=== PATIENT | female | born 1990 | race African-American/Black ===

== ENCOUNTER 2025-03-08 01:12 | Emergency (ER) | payer BC, OTHER ==
[~2025-03-08] VITALS: Ht 157.5 cm; Wt 70.0 kg
[~2025-03-08 01:12] MED LIST: FERR-43 PO
[2025-03-08 01:17] VITALS: O2SAT 100
[2025-03-08 01:23] VITALS: TEMP 36.7; O2SAT 100
[2025-03-08 01:40] LABS: PLATELET 203 x1000/uL (130-400); RED BLOOD CELL COUNT 4.18 mill/uL (4.2-5.4); RED CELL DISTRIBUTION WIDTH 15.5 % (11.6-14.6)
[2025-03-08 01:52] LABS: CREATININE 0.6 mg/dL (0.6-1.0)
[2025-03-08 01:53] LABS: UREA NITROGEN BLOOD < 5 mg/dL (9-23)
[2025-03-08 02:45] VITALS: BP 95/64; PULSE 78; RESP 16
[2025-03-08] MEDS: KETOROLAC 30MG/ML VIAL IM ONE (02:45)
[2025-03-08 03:19] LABS: CLARITY URINE CLOUDY (CLEAR); COLOR URINE YELLOW (YELLOW); GLUCOSE URINE NEGATIVE (NEGATIVE); KETONES URINE NEGATIVE (NEGATIVE); LEUKOCYTE ESTERASE URINE TRACE (NEGATIVE); NITRITE URINE NEGATIVE (NEGATIVE); OCCULT BLOOD URINE 2+ (NEGATIVE); PH URINE 5.5 (4.5-8.0); PROTEIN URINE NEGATIVE (NEGATIVE); SPECIFIC GRAVITY URINE 1.018 (1.005-1.030); UROBILINOGEN URINE 0.2 E.U./dL (0.2-1.0)
[2025-03-08 03:20] LABS: PROTEIN TOTAL 7.4 g/dL (6.0-8.3)
[2025-03-08 03:21] LABS: ASPARTATE AMINOTRANSFERASE 19 IU/L (<34)
[2025-03-08 03:22] LABS: BILIRUBIN DIRECT 0.1 mg/dL (<=3.0); BILIRUBIN TOTAL 0.6 mg/dL (0.1-1.0)
[2025-03-08 03:25] LABS: HCG SCREEN NEGATIVE
[2025-03-08] MEDS: LIDOCAINE 5% PATCH TOP SCH (04:12)
[2025-03-08] MEDS ORDERED: IBUP-1455 MT (05:23)
[2025-03-08] MEDS ORDERED: CEPH500C2 MT (05:23)
[2025-03-08] MEDS ORDERED: PHEN-815 MT (05:25)
[2025-03-08 05:33] LABS: SQUAMOUS EPITHELIAL CELL URINE 1+ /lpf (RARE/1+)
[2025-03-08 05:35] LABS: RBC URINE 0-2 /hpf (0-2); WBC URINE 0-2 /hpf (0-2)
[2025-03-08 05:36] LABS: BACTERIA URINE TRACE
== END 2025-03-08 05:34 | disposition home or self-care (01) ==
LOC: ER 01:12
DX: K42.9 Umbilical hernia without obstruction or gangrene (principal)
CPT/HCPCS: 99285; 74176; 80076; 80048; 81003; 81025; 84703; 83690; 83735; 85027; 36415; 96372; J1885; A4565